=== PATIENT | male | born 1990 | race Caucasian/White ===

== ENCOUNTER 2017-11-03 04:30 | Emergency (ER) | payer SELFPAY ==
[2017-11-03] MEDS ORDERED: LIDOCAINE 1%/EPINEPHRINE INJ 20 ML VIAL INJ ONE (05:10)
[2017-11-03] MEDS ORDERED: DOXYCYCLINE HYCLATE 100 MG TABLET PO ONE (05:10)
[2017-11-03] MEDS ORDERED: PROMETHAZINE HCL 25 MG TABLET PO ONE (05:11)
[2017-11-03] MEDS ORDERED: OXYCODONE-ACETAMINOPHEN 5-325 MG TABLET PO ONE (05:11)
--- NOTE | 2017-11-03 05:14 | ER Document Report ---
ED Animal Bite - General Chief Complaint: Dog Bite Stated Complaint: POSSIBLE DOG BITE Time Seen by Provider: 11/03/17 04:55 Notes: Patient is a 27-year-old male comes emergency department for chief complaint of dog bite. He states that he was taking his garbage down and was standing at the end of the long smoking a cigarette when he was attacked by his neighbor's pit bull. He states that the dog is always running around and he is familiar with seeing the dog frequently. He was bitten on the right leg causing heavy bleeding. He denies any other areas of injury. His tetanus is up-to-date within 5 years. He has not called animal control yet but he states he wants to. Unsure of the dog's vaccination status. TRAVEL OUTSIDE OF THE [place] IN LAST 30 DAYS: No - Related Data Allergies/Adverse Reactions: Penicillins Allergy (Verified 11/03/17 04:37) Past Medical History - General Information source: Patient - Social History Smoking Status: Current Every Day Smoker Smoking Education Provided: Yes - <3 min Frequency of alcohol use: None Drug Abuse: None Lives with: Family Family History: Reviewed & Not Pertinent Surgical Hx: Negative - Immunizations Immunizations up to date: Yes Hx Diphtheria, Pertussis, Tetanus Vaccination: Yes Review of Systems - Review of Systems Constitutional: No symptoms reported EENT: No symptoms reported Cardiovascular: No symptoms reported Respiratory: No symptoms reported Gastrointestinal: No symptoms reported Genitourinary: No symptoms reported Male Genitourinary: No symptoms reported Musculoskeletal: See HPI Skin: See HPI Hematologic/Lymphatic: No symptoms reported Neurological/Psychological: No symptoms reported Physical Exam - Vital signs Vitals: Temp Pulse Resp BP Pulse Ox 98.9 F 147 H 16 160/90 H 98 11/03/17 04:41 11/03/17 04:41 11/03/17 04:41 11/03/17 04:41 11/03/17 04:41 - Notes Notes: GENERAL: Alert, interacts well. Anxious HEAD: Normocephalic, atraumatic. EYES: Pupils equal, round, and reactive to light. Extraocular movements intact. ENT: Oral mucosa moist, tongue midline. [Nares patent, no nasal septal hematoma , TM's intact.] NECK: Full range of motion. Supple. Trachea midline. LUNGS: Clear to auscultation bilaterally, no wheezes, rales, or rhonchi. No respiratory distress. HEART: Tachycardic, normal rhythm, no murmur ABDOMEN: Soft, non-tender. Non-distended. Bowel sounds present in all 4 quadrants. EXTREMITIES: Right lower extremity over the medial aspect at the distal end of the calf with a approximately 4 cm full-thickness linear wound, moderate amount of bleeding, just above this there are tooth andrade with some surrounding bruising over the muscle. Normal range of motion at the ankle and knee, normal distal neurovascular exam. Normal extremity exam otherwise. BACK: no cervical, thoracic, lumbar midline tenderness. No saddle anesthesia, normal distal neurovascular exam. NEUROLOGICAL: Alert and oriented x3. Normal speech. [cranial nerves II through XII grossly intact]. PSYCH: Anxious SKIN: Warm, dry, normal turgor. No rashes or lesions noted. Course - Re-evaluation Re-evalutation: Open wound thoroughly cleaned, will need to be repaired. Will leave areas open for drainage to reduce likelihood of infection. Patient allergic to penicillin , will provide with doxycycline. Discussed rabies vaccine, however because of the dog being very familiar to patient and turn out being contactable or dog being probably catchable for quarantine, patient declines. Because of bruising and tenderness to the area I did discuss with patient and x-ray but this was declined. I feel this is appropriate, he has no bony tenderness, the wound was explored very carefully and there is no evidence of foreign body. Discussed wound care, follow-up, return precautions. Animal control form completed. They state understanding and agreement. - Vital Signs Vital signs: Temp Pulse Resp BP Pulse Ox 98.9 F 147 H 16 160/90 H 98 11/03/17 04:41 11/03/17 04:41 11/03/17 04:41 11/03/17 04:41 11/03/17 04:41 Procedures - Laceration/Wound Repair Right lower extremity Wound length (cm): 4 Wound's Depth, Shape: Linear Laceration pre-procedure: Sterile PPE donned, Sterile drapes applied, Shur- Clens applied Anesthetic type: 1% Lidocaine w/epi Volume Anesthetic (mLs): 6 Wound explored: Clean, No foreign body removed Irrigated w/ Saline (mLs): 200 Wound Repaired With: Sutures Suture Size/Type: 3:0, Nylon Number of Sutures: 5 - Vertical mattress Layer Closure?: No Post-procedure wound care: Sterile dressing applied Post-procedure NV exam normal: Yes Complications: No Discharge - Discharge Clinical Impression: Dog bite Qualifiers: Encounter type: initial encounter Qualified Code(s): W54.0XXA - Bitten by dog, initial encounter Laceration of right lower leg Qualifiers: Encounter type: initial encounter Qualified Code(s): S81.811A - Laceration without foreign body, right lower leg, initial encounter Condition: Stable Disposition: HOME, SELF-CARE Additional Instructions: Keep wound clean, clean with soap and water, current dressing (yellow xeroform) can stay on for 2 days. Avoid soaking. Take doxycycline antibiotic as prescribed to completion. Sutures need to come out in 7-10 days. Return immediately for any signs of infection including swelling, spreading redness, discolored discharge, if you develop a fever, or any other concerning or worsening symptoms. Prescriptions: Doxycycline Hyclate 100 mg PO BID #14 capsule
[2017-11-03] MEDS ORDERED: HYDROCODONE/ACETAMINOPHEN 5-325 MG (6 TAB/ER DISP) PO PRN (06:27)
[2017-11-03 06:46] VITALS: BP 141/100
== END 2017-11-03 06:46 | disposition home or self-care (01) ==
LOC: ER 04:30
DX: S81.851A Open bite, right lower leg, initial encounter (principal); W54.0XXA Bitten by dog, initial encounter; Y93.89 Activity, other specified; F17.210 Nicotine dependence, cigarettes, uncomplicated; R00.0 Tachycardia, unspecified; Z88.0 Allergy status to penicillin
CPT/HCPCS: 99283; 12002; J3490

== ENCOUNTER 2017-12-08 19:33 | Emergency (ER) | payer OTHER ==
--- NOTE | 2017-12-08 21:46 | ER Document Report ---
HPI - HPI Pain Level: 1 Notes: Patient is a 27-year-old male who presents to the ED primarily for wound supplies changes to his dog bite that got infected that had to be debrided in the ED will over a week ago. Patient states that he was discharged this past Tuesday and has an appointment with wound clinic in 6 days. Patient states that he has not had any new issues develop with his wound. He states that it is healing well and he is still on clindamycin. He has no other concerns or complaints. Denies any headache, fever, URI, sore throat, chest pain, palpitations, syncope, cough, shortness of breath, wheeze, dyspnea, abdominal pain, nausea/vomiting/diarrhea, urinary retention, dysuria, hematuria. - ROS Systems Reviewed and Negative: Yes All other systems reviewed and negative Past Medical History - Social History Smoking Status: Never Smoker Chew tobacco use (# tins/day): No Frequency of alcohol use: None Drug Abuse: None Family History: Reviewed & Not Pertinent, Arthritis Patient has suicidal ideation: No Patient has homicidal ideation: No Renal/ Medical History: Denies: Hx Peritoneal Dialysis Psychiatric Medical History: Reports: Hx Anxiety, Hx Attention Deficit Hyperactivity Disorder, Hx Depression Past Surgical History: Reports: Hx Tonsillectomy - Immunizations Immunizations up to date: Yes Hx Diphtheria, Pertussis, Tetanus Vaccination: Yes Vertical Provider Document - CONSTITUTIONAL Agree With Documented VS: No - HR is 88 during exam Notes: PHYSICAL EXAMINATION: GENERAL: Well-appearing, well-nourished and in no acute distress. LUNGS: Breath sounds clear to auscultation bilaterally and equal. No wheezes rales or rhonchi. HEART: Regular rate and rhythm without murmurs, rubs, gallops. ABDOMEN: Soft, nontender, nondistended abdomen. No guarding, no rebound. No masses appreciated. Normal bowel sounds present. No CVA tenderness bilaterally. Musculoskeletal: Rt leg: FROM to passive/active. Strength 5+/5. Extremities: No cyanosis, clubbing, or edema b/l. Peripheral pulses 2+. Capillary refill less than 3 seconds. NEUROLOGICAL: Cranial nerves grossly intact. Normal speech, normal gait. Normal sensory, motor exams PSYCH: Normal mood, normal affect. SKIN: Large debrided wound noted w/o purulence, streaks, or significant erythema. Non-tender. - INFECTION CONTROL TRAVEL OUTSIDE OF THE [place] IN LAST 30 DAYS: No Course - Re-evaluation Re-evalutation: 12/08/17 21:43 Patient is an afebrile, well-hydrated, 27-year-old male who presents to the ED for a wound recheck to his right leg. Vitals are acceptable without any significant tachycardia, tachypnea, or hypoxia. PE is otherwise unremarkable. The wound does appear to be healing well. Wound dressing was placed today. Wound instructions are to be continued as directed previously. No further labs or imaging warranted at this time based on H&P. Extra supplies given. Recheck with the wound clinic as scheduled in 6 days. Recheck with your PCM next week as well. Return to the ED with any worsening/concerning symptoms otherwise as reviewed in discharge. Patient is in agreement. - Vital Signs Vital signs: Temp Pulse Resp BP Pulse Ox 98.8 F 125 H 12 133/95 H 100 12/08/17 19:45 12/08/17 19:45 12/08/17 19:45 12/08/17 19:45 12/08/17 19:45 Discharge - Discharge Clinical Impression: Encounter for wound re-check Condition: Stable Disposition: HOME, SELF-CARE Additional Instructions: Keep the skin clean Wash with soap and sterile water Tylenol/ibuprofen if needed Dressing changes daily as directed Take medication as directed Monitor for any worsening symptoms Recheck with your PCM in 3-5 days Keep consult with wound clinic as scheduled on the 14 of December. Return to the ED with any worsening symptoms and/or development of fever, headache, chest pain, palpitations, syncope, shortness of breath, trouble breathing, abdominal pain, n/v/d, abscess, purulent discharge, red streaks, worsening swelling, or other worsening symptoms that are concerning to you. Forms: Elevated Blood Pressure Referrals: Wound Care [Provider Group] - 12/14/17
[2017-12-08 22:08] VITALS: BP 130/83
== END 2017-12-08 22:05 | disposition home or self-care (01) ==
LOC: ER 19:33
DX: S81.851D Open bite, right lower leg, subsequent encounter (principal); L08.9 Local infection of the skin and subcutaneous tissue, unspecified; W54.0XXD Bitten by dog, subsequent encounter
CPT/HCPCS: 99282